=== PATIENT | female | born 1955 | race Caucasian/White ===

== ENCOUNTER 2018-05-08 09:06 | Observation (INO) | payer BC ==
--- NOTE | 2018-05-08 09:17 | EDPHY ---
H & P Time Seen by Provider: 05/08/18 09:12 HPI/ROS: Chief complaint. Stroke alert HPI. Patient is a 62-year-old female here by EMS with stroke alert. The last time normal was 8:20 a.m. With acute onset. She had slight dizziness prior to onset. And then at about 8:20 a.m. She noticed speech difficulty and right- sided weakness. EMS was called. Patient has a history of hypertension and did not take her blood pressure medications this morning. She has no chest discomfort or trouble breathing. No abdominal pain. Her symptoms have largely resolved by the time she arrives in the emergency department. No similar symptoms previously. No recent head injury ROS 10 systems were reviewed and negative with the exception of the elements mentioned in the history of present illness Past Medical/Surgical History: Hypertension Social History: , nonsmoker, no alcohol Physical Exam: General Appearance: Alert well-developed female mild distress. Vital signs stable Eyes: Pupils equal and round no pallor or injection. ENT, Mouth: Mucous membranes are moist. Respiratory: There are no retractions, lungs are clear to auscultation. Cardiovascular: Regular rate and rhythm. Gastrointestinal: Abdomen is soft and nontender, no masses, bowel sounds normal. Neurological: Awake and alert, sensory and motor exams grossly normal. Skin: Warm and dry, no rashes. Musculoskeletal: Neck is supple nontender. Extremities symmetrical, full range of motion. Psychiatric: Patient is oriented X 3, there is no agitation. Constitutional: Initial Vital Signs Heart Rate 80 05/08/18 09:20 Respiratory Rate 16 05/08/18 09:20 Blood Pressure 171/106 H 05/08/18 09:20 O2 Sat (%) 97 05/08/18 09:20 O2 Delivery Mode Room Air Allergies/Adverse Reactions: Penicillins Allergy (Verified 05/08/18 10:08) Hives Sulfa (Sulfonamide Antibiotics) Allergy (Verified 05/08/18 10:08) Hives Home Medications: Medication Instructions Recorded Cholecalciferol Vit D3 [Vitamin D3 1,000 units PO DAILY 05/08/18 (*)] FLUoxetine [Prozac 20 MG (*)] 20 mg PO DAILY 05/08/18 Lansoprazole [Prevacid] 30 mg PO DAILY 05/08/18 Losartan Potassium 100 mg PO DAILY 05/08/18 Pantoprazole Sodium [Protonix 40mg 40 mg PO BID 05/08/18 (*)] amLODIPine BESYLATE [Norvasc 5 mg 5 mg PO DAILY 05/08/18 (*)] Medical Decision Making - Diagnostics EKG Interpretation: EKG interpreted by me shows normal sinus rhythm normal interval and axis. QRS is normal there is no significant ST elevation or depression. No arrhythmia. The rate is 64 Imaging Results: Imaging Impressions Head CT 05/08/18 09:13 Impression: 1. No evidence for acute intracranial abnormality or acute intracranial hemorrhage. 2. Mild periventricular and deep hemispheric white matter change which is nonspecific and can be seen with small vessel ischemic disease. 3. Intracranial atherosclerosis. Results called and discussed with Rahul Grove on 05/08/2018 at 0923 hours. Head CTA 05/08/18 09:28 Impression: 1. Mild bilateral narrowing of the posterior cerebral arteries, which could be related to vasculitis but is nonspecific. 2. No definite evidence of acute embolus. If symptoms persist and clinical suspicion warrants, consider MRI. 3. Additional findings as above. Stenoses are calculated using [place] Symptomatic Carotid Endarterectomy Trial (NASCET) criteria. Findings discussed with Rahul Grove on 05/08/2018 at 9:50 a.m. Neck CTA 05/08/18 09:28 Impression: 1. Mild bilateral narrowing of the posterior cerebral arteries, which could be related to vasculitis but is nonspecific. 2. No definite evidence of acute embolus. If symptoms persist and clinical suspicion warrants, consider MRI. 3. Additional findings as above. Stenoses are calculated using [place] Symptomatic Carotid Endarterectomy Trial (NASCET) criteria. Findings discussed with Rahul Grove on 05/08/2018 at 9:[address] shows no evidence of intracranial hemorrhage CTA head and neck reviewed by me and discussed with Dr. Pop shows no large vessel occlusion Procedures: IV normal saline, monitor ED Course/Re-evaluation: I consulted discussed case with [facility] who evaluates the patient using telemedicine. They recommend no tPA as symptoms are improving and have largely resolved. They recommended admission for TIA workup Re-evaluation at 9:30 a.m. On return from CTA of head and neck. Patient is stable. No neurologic findings. She is awake alert and conversational. I consulted discussed the case with Dr. Evans, hospitalist, who agrees to the admission Re-evaluation again at 9:40 a.m. Patient is stable. No neurologic findings. Patient, her , and I discussed imaging lab EKG results. We discussed treatment plan including recommendation for admission for further evaluation. They expressed understanding and agreement Differential Diagnosis: I considered intracranial hemorrhage, CVA and stroke. Patient had fairly profound speech and right-sided weakness that has now resolved. Clinical impression currently is TIA. Critical Care Time: Critical care time exclusive procedures 40 min - Data Points Laboratory Results: Laboratory Results 05/08/18 09:10 05/08/18 09:10 05/08/18 05/08/18 05/08/18 09:15 09:10 09:10 WBC RBC Hgb POC Hgb 15.6 gm/dL gm/dL (12.6-16.3) Hct POC Hct 46 % % (38-47) MCV MCH MCHC RDW Plt Count MPV Neut % (Auto) Lymph % (Auto) [place] % (Auto) Eos % (Auto) Baso % (Auto) Nucleat RBC Rel Count Absolute Neuts (auto) Absolute Lymphs (auto) Absolute Monos (auto) Absolute Eos (auto) Absolute Basos (auto) Absolute Nucleated RBC Immature Gran % Immature Gran # PT 12.5 SEC SEC (12.0-15.0) INR 0.91 (0.83-1.16) POC Sodium 142 mEq/L mEq/L (135-145) Sodium 139 mEq/L mEq/L (135-145) POC Potassium 3.5 mEq/L mEq/L (3.3-5.0) Potassium 3.8 mEq/L mEq/L (3.5-5.2) POC Chloride 103 mEq/L mEq/L (97-110) Chloride 106 mEq/L mEq/L (97-110) Carbon Dioxide 23 mEq/l mEq/l (22-31) POC Total CO2 24 mEq/L mEq/L (22-31) Anion Gap 10 mEq/L mEq/L (6-14) POC BUN 16 mg/dL mg/dL (7-23) BUN 16 mg/dL mg/dL (7-23) Creatinine 0.6 mg/dL mg/dL (0.6-1.0) POC Creatinine 0.6 mg/dL mg/dL (0.6-1.0) Estimated GFR > 60 Glucose 109 mg/dL H mg/dL (70-100) POC Glucose 112 mg/dL H mg/dL (70-100) Hemoglobin A1c Estim Average Glucose Calcium 9.7 mg/dL mg/dL (8.5-10.4) 05/08/18 05/08/18 09:10 09:00 WBC 5.07 10^3/uL 10^3/uL (3.80-9.50) RBC 4.92 10^6/uL 10^6/uL (4.18-5.33) Hgb 15.5 g/dL g/dL (12.6-16.3) POC Hgb Hct 45.7 % % (38.0-47.0) POC Hct MCV 92.9 fL fL (81.5-99.8) MCH 31.5 pg pg (27.9-34.1) MCHC 33.9 g/dL g/dL (32.4-36.7) RDW 12.5 % % (11.5-15.2) Plt Count 278 10^3/uL 10^3/uL (150-400) MPV 9.3 fL fL (8.7-11.7) Neut % (Auto) 33.0 % L % (39.3-74.2) Lymph % (Auto) 52.9 % H % (15.0-45.0) [place] % (Auto) 10.1 % % (4.5-13.0) Eos % (Auto) 3.2 % % (0.6-7.6) Baso % (Auto) 0.4 % % (0.3-1.7) Nucleat RBC Rel Count 0.0 % % (0.0-0.2) Absolute Neuts (auto) 1.68 10^3/uL L 10^3/uL (1.70-6.50) Absolute Lymphs (auto) 2.68 10^3/uL 10^3/uL (1.00-3.00) Absolute Monos (auto) 0.51 10^3/uL 10^3/uL (0.30-0.80) Absolute Eos (auto) 0.16 10^3/uL 10^3/uL (0.03-0.40) Absolute Basos (auto) 0.02 10^3/uL 10^3/uL (0.02-0.10) Absolute Nucleated RBC 0.00 10^3/uL 10^3/uL (0-0.01) Immature Gran % 0.4 % % (0.0-1.1) Immature Gran # 0.02 10^3/uL 10^3/uL (0.00-0.10) PT INR POC Sodium Sodium POC Potassium Potassium POC Chloride Chloride Carbon Dioxide POC Total CO2 Anion Gap POC BUN BUN Creatinine POC Creatinine Estimated GFR Glucose POC Glucose Hemoglobin A1c Pending Estim Average Glucose Pending Calcium Medications Given: Discontinued Medications Aspirin (Aspirin) 325 mg PO EDNOW ONE Stop: 05/08/18 09:54 Last Admin: 05/08/18 10:17 Dose: 325 mg Point of Care Test Results: Chemistry 05/08/18 09:15 POC Sodium 142 mEq/L mEq/L (135-145) POC Potassium 3.5 mEq/L mEq/L (3.3-5.0) POC Chloride 103 mEq/L mEq/L (97-110) POC Total CO2 24 mEq/L mEq/L (22-31) POC BUN 16 mg/dL mg/dL (7-23) POC Creatinine 0.6 mg/dL mg/dL (0.6-1.0) POC Glucose 112 mg/dL H mg/dL (70-100) ISTAT H&H 05/08/18 09:15 POC Hgb 15.6 gm/dL gm/dL (12.6-16.3) POC Hct 46 % % (38-47) Departure - Departure Disposition: [facility] Inpatient Acute Clinical Impression: Transient cerebral ischemia Qualifiers: Transient cerebral ischemia type: unspecified Qualified Code(s): G45.9 - Transient cerebral ischemic attack, unspecified Condition: Good
[2018-05-08] MEDS ORDERED: IOHEXOL 350mgI/ML (OMNIPAQUE) 150 ML BTL IV ONE (09:27)
[2018-05-08 09:28] LABS: PLATELET COUNT 278 10^3/uL (150-400)
[2018-05-08 09:32] LABS: INR 0.91 (0.83-1.16); PROTIME(PATIENT) 12.5 SEC (12.0-15.0)
[2018-05-08] MEDS ORDERED: ONDANSETRON DISINTEGRATING 4 MG TAB PO PRN (09:49)
[2018-05-08] MEDS ORDERED: ONDANSETRON 4 MG/2 ML VIAL IVP PRN (09:49)
[2018-05-08] MEDS ORDERED: ACETAMINOPHEN 325 MG TAB PO PRN (09:49)
[2018-05-08] MEDS ORDERED: ASPIRIN 325 MG TAB PO ONE (09:53)
[2018-05-08] MEDS ORDERED: LABETALOL HCL 5 MG/ML 20 ML MDV IVP PRN (09:54)
--- NOTE | 2018-05-08 09:57 | PDGENHP ---
History and Physical - Chief Complaint right UE weakness, garbled speech - History of Present Illness 62 yo female with h/o hypertension presented to ED with right arm weakness. She awoke this am, had a cup of tea, then suddenly felt inability to move her right arm, "it wasn't working right". When she spoke to her , she had garbled speech. She tried to drink water, but this dribbled down her mouth. She took a full dose ASA and came to the ED. While in the ED, her symptoms completely resolved. She now feels fine. Notes mild headache. Says she didn' t take her BP meds this am. No known h/o A fib and no h/o prior CVA. She was on ASA 81 mg daily, but stopped this 3 months ago due to esophagitis. She says those symptoms have completely resolved. She does note drinking 3 glasses of wine a day. She was previously on statins, intolerant to simvastatin and pravastatin, developed muscle aches, but never had a CK checked. CT in the ED was negative and CTA also negative for large vessel occlusion. She was evaluated by [facility], who did not recommend TpA. She is admitted for TIA workup. History Information - Allergies/Home Medication List Allergies/Adverse Reactions: Penicillins Allergy (Verified 05/08/18 10:08) Hives Sulfa (Sulfonamide Antibiotics) Allergy (Verified 05/08/18 10:08) Hives Home Medications: Cholecalciferol Vit D3 [Vitamin D3 (*)] 1,000 units PO DAILY 05/08/18 [Last Taken 05/07/18] FLUoxetine [Prozac 20 MG (*)] 20 mg PO DAILY 05/08/18 [Last Taken 05/07/18] Lansoprazole [Prevacid] 30 mg PO DAILY 05/08/18 [Last Taken 05/07/18] Losartan Potassium 100 mg PO DAILY 05/08/18 [Last Taken 05/07/18] Pantoprazole Sodium [Protonix 40mg (*)] 40 mg PO BID 05/08/18 [Last Taken 21:00] amLODIPine BESYLATE [Norvasc 5 mg (*)] 5 mg PO DAILY 05/08/18 [Last Taken ] I have personally reviewed and updated: family history, medical history, social history, surgical history - Past Medical History hypertension Additional medical history: esophagitis, on PPI - Surgical History Additional surgical history: recent EGD showed esophagitis - Family History Positive for: non-pertinent - Social History Smoking Status: Never smoked Alcohol Use: Other (3 drinks a day (wine)) Drug Use: None Additional social history: Lives in [place], visiting son locally Review of Systems Review of Systems: ROS: 10pt was reviewed & negative except for what was stated in HPI & below Physical Exam Physical Exam: Temp Pulse Resp BP Pulse Ox 36.7 C 72 16 164/95 H 94 05/08/18 09:23 05/08/18 09:50 05/08/18 09:50 05/08/18 09:50 05/08/18 09:50 Constitutional: no apparent distress Eyes: PERRL Ears, Nose, Mouth, Throat: moist mucous membranes Cardiovascular: regular rate and rhythym, no murmur, rub, or gallop Respiratory: no respiratory distress, clear to auscultation Gastrointestinal: normoactive bowel sounds, soft, non-tender abdomen Skin: warm Musculoskeletal: full muscle strength Neurologic: AAOx3, other (neg pronator drift, no facial asymmetry, speech fluent ) Psychiatric: interacting appropriately Lab Data & Imaging Review 05/08/18 09:10 05/08/18 09:10 WBC 5.07 10^3/uL (3.80-9.50) 05/08/18 09:10 RBC 4.92 10^6/uL (4.18-5.33) 05/08/18 09:10 Hgb 15.5 g/dL (12.6-16.3) 05/08/18 09:10 POC Hgb 15.6 gm/dL (12.6-16.3) 05/08/18 09:15 Hct 45.7 % (38.0-47.0) 05/08/18 09:10 POC Hct 46 % (38-47) 05/08/18 09:15 MCV 92.9 fL (81.5-99.8) 05/08/18 09:10 MCH 31.5 pg (27.9-34.1) 05/08/18 09:10 MCHC 33.9 g/dL (32.4-36.7) 05/08/18 09:10 RDW 12.5 % (11.5-15.2) 05/08/18 09:10 Plt Count 278 10^3/uL (150-400) 05/08/18 09:10 MPV 9.3 fL (8.7-11.7) 05/08/18 09:10 Neut % (Auto) 33.0 % (39.3-74.2) L 05/08/18 09:10 Lymph % (Auto) 52.9 % (15.0-45.0) H 05/08/18 09:10 [place] % (Auto) 10.1 % (4.5-13.0) 05/08/18 09:10 Eos % (Auto) 3.2 % (0.6-7.6) 05/08/18 09:10 Baso % (Auto) 0.4 % (0.3-1.7) 05/08/18 09:10 Nucleat RBC Rel Count 0.0 % (0.0-0.2) 05/08/18 09:10 Absolute Neuts (auto) 1.68 10^3/uL (1.70-6.50) L 05/08/18 09:10 Absolute Lymphs (auto) 2.68 10^3/uL (1.00-3.00) 05/08/18 09:10 Absolute Monos (auto) 0.51 10^3/uL (0.30-0.80) 05/08/18 09:10 Absolute Eos (auto) 0.16 10^3/uL (0.03-0.40) 05/08/18 09:10 Absolute Basos (auto) 0.02 10^3/uL (0.02-0.10) 05/08/18 09:10 Absolute Nucleated RBC 0.00 10^3/uL (0-0.01) 05/08/18 09:10 Immature Gran % 0.4 % (0.0-1.1) 05/08/18 09:10 Immature Gran # 0.02 10^3/uL (0.00-0.10) 05/08/18 09:10 PT 12.5 SEC (12.0-15.0) 05/08/18 09:10 INR 0.91 (0.83-1.16) 05/08/18 09:10 POC Sodium 142 mEq/L (135-145) 05/08/18 09:15 Sodium 139 mEq/L (135-145) 05/08/18 09:10 POC Potassium 3.5 mEq/L (3.3-5.0) 05/08/18 09:15 Potassium 3.8 mEq/L (3.5-5.2) 05/08/18 09:10 POC Chloride 103 mEq/L (97-110) 05/08/18 09:15 Chloride 106 mEq/L (97-110) 05/08/18 09:10 Carbon Dioxide 23 mEq/l (22-31) 05/08/18 09:10 POC Total CO2 24 mEq/L (22-31) 05/08/18 09:15 Anion Gap 10 mEq/L (6-14) 05/08/18 09:10 POC BUN 16 mg/dL (7-23) 05/08/18 09:15 BUN 16 mg/dL (7-23) 05/08/18 09:10 Creatinine 0.6 mg/dL (0.6-1.0) 05/08/18 09:10 POC Creatinine 0.6 mg/dL (0.6-1.0) 05/08/18 09:15 Estimated GFR > 60 05/08/18 09:10 Glucose 109 mg/dL (70-100) H 05/08/18 09:10 POC Glucose 112 mg/dL (70-100) H 05/08/18 09:15 Calcium 9.7 mg/dL (8.5-10.4) 05/08/18 09:10 Visualized and Interpreted EKG results: Yes EKG Interpretation: Positive for: normal sinsus rhythm Assessment & Plan Assessment: TIA - symptom onset 8:30 AM, resolved in the ED, no neurodeficits with NIHSS 0 on my exam. Head CT neg. Evaluated by [facility], no TpA recommended -CTA head and neck pending (neg for lg vessel occlusion) -admit to 3N for neurochecks, telemetry -likely warrants outpt cardiac event monitor to search for a fib (mally with etoh hx) -s/p ASA 325 mg today, start 81 mg daily in am -check lipid status in am, start statin therapy (intolerant of 2 prior statins, will try very low dose atorvastatin after PARQ with pt) -echo, MRI planned -neurology consult -check a1c -permissive hypertension, will resume home meds (1/2 dose), o/w treat for SBP >220 or DBp >110 Hypertension - poor control -resume home meds once med rec completed H/O alcohol use - no h/o withdrawal, but drinks several glasses of wine a night -monitor for w/d symptoms, defer CIWA for now as seems low risk Esophagitis - cont PPI Full code DVT PPLX - SCD's Dispo - obs
[2018-05-08] MEDS ORDERED: ATORVASTATIN CALCIUM 40 MG TAB PO SCH (10:00)
[2018-05-08] MEDS ORDERED: ASPIRIN 325 MG TAB ONE (10:14)
--- NOTE | 2018-05-08 12:40 | ASMTCMCOM ---
CM Note CM Note Notes: Pt presented to the ED via EMS as a Stroke Alert for right sided weakness and slurred speech. By the time the pt arrived to the ED, pt's signs and symptoms had resolved. Pt admitted for a TIA, further testing & monitoring. Pt and her ,Shimon, live in [place] but arrived to [place] a few days ago & are renting a house for a month so they can spend time with one of their sons, John, and his family (they recently had a baby). Pt and Shimon's other son, Roman, is also visiting from [place]. CM met w/pt, Shimon and Roman; provided updates, discussed POC, etc. Echo and MRI ordered. Neuro to consult. PT/OT/HOUSEKEEPING ROOM INSPECTOR evals ordered. Exact DC needs TBD but anticipate pt will stabilize and DC home Ind w/family. CM to follow. Date Signed: 05/08/2018 12:39 PM Electronically Signed By:Hetal Perry RN
--- NOTE | 2018-05-08 13:42 | ECHO ---
[email or web address] [address] [address] Main: [phone] Fax: Transthoracic Echocardiogram Name: MARZENA YANES MR#: [id number] Study Date: 05/08/2018 Study Time: 11:31 AM Date of : 1955 Age: 62 year(s) Height: 170.2 cm (67 in.) Weight: 79.38 kg (175 lb.) BSA: 1.91 m2 Gender: Female Examination: Echo Indication: TIA, Right sided weakness, Aphasia, HTN, Now resolved. Image Quality: Contrast: Requested by: Ina Evans BP: 179 mmHg/102 mmHg Heart Rate: Rhythm: Normal sinus rhythm Indication: TIA, Right sided weakness, Aphasia, HTN, Now resolved. Procedure Staff [place] Technician: Trevor Perez RDCS Reading Physician: Rakesh Santos MD Requesting Provider: Conclusions: No pericardial effusion. Concentric left ventricular hypertrophy. Ejection fraction 77%. Mitral and aortic valve calcification. Measurements: Chambers Valvular Assessment AV/MV Valvular Assessment TV/PV Normal Normal Normal Name Value Range Name Value Range Name Value Range Ao Michelle (MM): 3.2 cm (2.2 cm-3.7 AV Vmax: 1.09 m/s (1 m/s-1.7 PV Vmax: 0.79 m/s (0.6 m/s-0.9 cm) m/s) m/s) IVSd (2D): 1.2 cm (0.6 cm-1.1 AV maxP mmHg ( - ) PV PGmax: 2 mmHg ( - ) cm) LVOT Vmax: 0.91 m/s (0.7 m/s-1.1 LVDd (2D): 4.3 cm (3.9 cm-5.3 m/s) cm) MV E Vmax: 0.59 m/s ( - ) LVDs (2D): 2.3 cm (2.1 cm-4 MV A Vmax: 1.01 m/s ( - ) cm) MV E/A: 0.58 ( - ) LVPWd (2D): 1.3 cm ( - ) LVEF (2D): 77 (>=54 %) Continued Measurements: Chambers Valvular Assessment AV/MV Name Value Name Value LADs Lon.0 cm MV E' Septal: 0.04 m/s LA Area: 14.9 cm2 MV E/E' Septal: 14.10 LA Volume: 40 ml MV E/E' Lateral: 11.90 LA Volume Index: 20.9 ml/m2 Patient: MARZENA YANES Study Date: 05/08/2018 Page 1 of 2 11:31 AM Findings: Left Ventricle: Normal size left ventricle. Mild to moderate LVH. Normal global systolic LV function. EF is 77 %. No regional wall motion abnormality. Grade 1 diastolic dysfunction (abnormal relaxation). Right Ventricle: Normal size right ventricle. Normal RV function. Left Atrium: The left atrium is normal in size. Right Atrium: The right atrium is normal in size. Mitral Valve: The mitral valve is normal in appearance. Mild mitral valve leaflet calcification is present. There is no significant mitral valve regurgitation. Aortic Valve: The aortic valve is tri-leaflet. Mild aortic cusp calcification is noted. Tricuspid Valve: The tricuspid valve is normal in appearance and function. There is no significant tricuspid valve regurgitation. Pulmonic Valve: The pulmonic valve is normal in appearance and function. There is no pulmonic regurgitation seen. Aorta: The aorta is normal. Pericardium: No pericardial effusion. There is pericardial fat. (No Signature Object) Patient: MARZENA YANES Study Date: 05/08/2018 Page 2 of 2 11:31 AM [id number]
[2018-05-08] MEDS: amLODIPine BESYLATE 5 MG TAB PO SCH (15:13)
[2018-05-08] MEDS: ATORVASTATIN CALCIUM 10 MG TAB PO SCH (15:13)
[2018-05-08] MEDS: LANSOPRAZOLE SUSP 3 MG/ML UDSYR (Peds) PO SCH (15:14)
[2018-05-08] MEDS: FLUoxetine 20 MG CAP PO SCH (15:14)
[2018-05-08] MEDS: LOSARTAN POTASSIUM 50 MG TAB PO SCH (15:14)
--- NOTE | 2018-05-08 15:29 | CPEKG ---
Test Reason : OPEN Blood Pressure : / mmHG Vent. Rate : 064 BPM Atrial Rate : 063 BPM P-R Int : 165 ms QRS Dur : 107 ms QT Int : 414 ms P-R-T Axes : 041 030 018 degrees QTc Int : 427 ms Sinus rhythm Confirmed by Rahul Grove ([id number]) on 05/08/2018 3:29:13 PM Referred By: Rahul Grove Confirmed By:Rahul Grove
[2018-05-08] MEDS: PANTOPRAZOLE SODIUM 40 MG TAB PO SCH (20:59)
[2018-05-09 04:40] VITALS: BP 135/85
[2018-05-09] MEDS ORDERED: ASPIRIN EC 81 MG TAB PO SCH (09:00)
[2018-05-09] MEDS: LANSOPRAZOLE SUSP 3 MG/ML UDSYR (Peds) PO SCH (09:16)
[2018-05-09] MEDS: amLODIPine BESYLATE 5 MG TAB PO SCH (09:22)
[2018-05-09] MEDS: ATORVASTATIN CALCIUM 10 MG TAB PO SCH (09:22)
[2018-05-09] MEDS: FLUoxetine 20 MG CAP PO SCH (09:23)
[2018-05-09] MEDS: LOSARTAN POTASSIUM 50 MG TAB PO SCH (09:23)
[2018-05-09] MEDS: PANTOPRAZOLE SODIUM 40 MG TAB PO SCH (09:24)
--- NOTE | 2018-05-09 14:22 | ASMTLACE ---
LACE Length of stay for Answers: 1 day current admission Acuity / Level of Answers: No Care: Did the patient have an inpatient admission? Comorbidities - select Answers: Other Notes: HTN all that apply # of Emergency department Answers: 1-2 visits in the last 6 months Score: 3 Date Signed: 05/09/2018 02:22 PM Electronically Signed By:ROSY Bell
--- NOTE | 2018-05-09 14:23 | ASMTDCNOTE ---
Case Management Discharge Discharge Order Complete? Answers: Yes Patient to Obtain Answers: via Family Medications Transportation Arranged Answers: Family/Friends Discharge Comments Notes: Patient discharged home today with family and no CM needs. Date Signed: 05/09/2018 02:23 PM Electronically Signed By:ROSY Bell
--- NOTE | 2018-05-09 14:44 | NEUROPROG ---
Assessment: [id number] - Neurology Consult: - CC: Dr. Evans consulted neurology for TIA. Results placed in EMR for her review. - HPI: 05/09/18: Pt developed dizziness and then sudden onset right sided weakness and speech disturbance at 8:20 am on 05/08/18. Brought to [facility] ER where her symptoms resolved. Head CT and head/neck CTA showed no explanation for symptoms. Pt admitted for TIA evaluation (she was not on aspirin or statin prior to this). TTE unremarkable for stroke cause and brain MRI showed no stroke or acute findings. I initially saw pt on 05/09/18. Neurologic exam normal. Pt started on aspirin for stroke prevention. H1AC 5.0. LDL 132 (I recommended pt being started on a statin). - PMHx: HTN - SHx: no tobacco FHx: NC - ROS: Pt denied acute fever, total vision loss, active severe chest pain, respiratory failure, total body severe rash, total bowel/bladder incontinence, psychosis, active seizures, or active bleeding - O: VS reviewed General: Alert Eyes: Fundoscopic exam not able to visualize optic disks CV: Heart RRR, no murmur, no carotid bruit Lungs: Clear to auscultation bilaterally, no rhonchi or rales Neuro: - Mental: . Oriented x person/place/date . concentration appears normal . speech fluency/comprehension normal . memory appears normal . fund of knowledge appear intact - Cranial Nerves: . II: PERRL, VFFTC . III/IV/: EOMI, no nystagmus, normal smooth pursuits, no Ptosis . V: facial sensation intact to LT . VII: face symmetric to eye closure and smile . VIII: hearing intact to conversation . IX/X: uvula raises symmetrically . XI: SCM 5/5 B/L strength . XII: tongue protrudes midline w/nl strength - Motor: . Tone: normal tone in all 4 extremity . Strength: no pronator drift, strength 5/5 throughout (B/L delt, bic, tri, hand infant caregiver, hf/he, df/pf) - Reflexes: B/L bic/BR/patella 2/4 - Sensory: all 4 extremity intact to light touch - Coord: [id number] wnl, ANDRES wnl, [id number] wnl - Gait: deferred - Labs: 05/08/18- CBC wnl, Chem wnl, H1AC 5.0, LDL 132 - Rads: 05/08/18- Head CT: no acute bleed (I personally visualized the images on 05/08/18 05/08/18- CTA head/neck: Mild bilateral narrowing of the posterior cerebral arteries, no flow limiting stenosis and no vessel occlusion 05/08/18- Brain MRI: no stroke 05/08/18- TTE: unconcerning 05/08/18- 24 hour telemetry: no afib seen - Assessment: 1. TIA causing transient speech disturbance and right sided weakness on 05/08/18 - Plan: - Begin aspirin 81 mg qd for stroke prevention - Blood pressure < 140/90 - LDL goal < 70 (132), recommend beginning statin - H1AC goal < 7.0 (5.0) - PT/OT/SPeech to determine any rehab needs - F/U with PCM after discharge Objective: Vital Signs Temp Pulse Resp BP Pulse Ox 36.6 C 69 22 H 135/85 H 90 L 05/09/18 07:29 05/09/18 07:29 05/09/18 07:29 05/09/18 04:39 05/09/18 07:29 05/08/18 05/09/18 05/10/18 05:59 05:59 05:59 Intake Total 1500 Output Total 853 Balance 647 PT 12.5 SEC (12.0-15.0) 05/08/18 09:10 INR 0.91 (0.83-1.16) 05/08/18 09:10 Allergies/Adverse Reactions: Penicillins Allergy (Verified 05/08/18 10:08) Hives Sulfa (Sulfonamide Antibiotics) Allergy (Verified 05/08/18 10:08) Hives
--- NOTE | 2018-05-09 16:30 | GDS ---
[f rep st] DISCHARGE SUMMARY DISCHARGE DIAGNOSES: 1. Transient ischemic attack. 2. Hypertension. 3. Alcohol use disorder. 4. History of esophagitis. CONSULTANTS: Quintin Rebolledo DO, Neurology. HISTORY: For details, please see history and physical dated May 08, 2018. In brief, the patient is a 62-year-old female with history of hypertension and esophagitis who is visiting from [facility]. Presented to the emergency department after she has developed sudden right upper extremity weakn ess and garbled speech. In the ED, she was evaluated by [facility]. At that point, her symp toms completely resolved. TPA was not recommended. She was admitted to the hospital for further TIA workup. HOSPITAL COURSE: Patient admitted to the med/surg neuro unit for neuro checks and telemetry monitori ng. She had a CTA of the head and neck, which is negative for large vessel occlusion. On the time o f admission, her NIH stroke score was 0. She was started on aspirin 81 mg daily. Interestingly, she had stopped her aspirin 3 months prior to this event due to esophagitis, for which she has been heidy manjinder with a twice daily PPI, and her symptoms have completely resolved. Her LDL cholesterol is 132. She was started on very low-dose atorvastatin at 10 mg daily. She notes intolerance to prior statins , including simvastatin and pravastatin, having developed myalgias and muscle spasms. She is agreeab le to trying a very low dose of a 3rd statin, and if she fails this treatment, I would deem her stati n intolerant. Echocardiogram was performed and revealed no evidence of LV thrombus or cardiac source of her TIA. There was no evidence of atrial fibrillation on telemetry. In addition, there was no e vidence of acute stroke on her MRI. I recommend she follow up with her primary care physician upon r eturn to [place]. It may be reasonable to consider outpatient cardiac event monitoring to [facility] looking for atrial fibrillation as a source of her TIA. It is also possible this is an atypical migraine. I recommend she discontinue her alcohol use, as this could be a provoking factor in her es ophagitis and increases her risk of atrial fibrillation. She will continue on her PPI therapy as pre viously prescribed. On the day of discharge, she is in stable condition with a blood pressure of 135/85, heart rate 66, r espiratory rate 16, and she is 96% on room air. DISPOSITION: Patient is discharged home in stable condition. FOLLOWUP: The patient is to follow up with her primary care physician upon return to [facility] consideration of referral to Cardiology for outpatient cardiac event monitor. DISCHARGE MEDICATIONS: Please see [facility] completed outpatient medication list New medications on discharge include aspirin ECA 81 mg p.o. daily, atorvastatin 10 mg p.o. daily, #30 , no refills. She will continue all her outpatient medications previously prescribed, including Prozac 20 mg p.o. d aily, amlodipine 5 mg p.o. daily, losartan 10 mg p.o. daily, Protonix 40 mg p.o. b.i.d., and vitamin D3. I note she also has Prevacid on her medication list. She really only needs to be on 1 PPI. /[id number]/MODL
== END 2018-05-09 09:48 | disposition home or self-care (01) ==
LOC: INTOOBSV 09:41 → F3N 10:36
PROVIDERS: ADMIT Hospitalist; ATTEND Hospitalist
DX: G45.9 Transient cerebral ischemic attack, unspecified (principal); I10 Essential (primary) hypertension; F10.10 Alcohol abuse, uncomplicated
CPT/HCPCS: 70450; 70496; 70498; 70551; 92523; 92610; 93005; 93306; 99291; G0378; 82435-PO; 82565-PO; 82947-PO; 84132-PO; 84295-PO; 84520-PO; 85014-ER; Q9967